=== PATIENT | female | born 1980 | race Caucasian/White ===

== ENCOUNTER 2019-11-09 10:36 | Inpatient (IN) | payer OTHER ==
[~2019-11-09] VITALS: Ht 154.9 cm; Wt 107.1 kg
[2019-11-09] MEDS ORDERED: PANT40TA3 PO (10:59)
[2019-11-09] MEDS ORDERED: BENZ0.5T23 PO (10:59)
[2019-11-09] MEDS ORDERED: MELA3TAB49 PO (10:59)
[2019-11-09] MEDS ORDERED: LORA-674 PO (10:59)
[2019-11-09] MEDS ORDERED: PANTOPRAZOLE 40MG TAB (PROTONIX) PO ONE (11:15)
--- NOTE | 2019-11-09 13:26 | MHHPEPDOC ---
[facility] History & Physical History and Physical DATE OF ADMISSION: LEGAL STATUS AT ADMISSION: . CHIEF COMPLAINT: . HISTORY OF PRESENT ILLNESS: Patient is a 39-year-old female, who PSYCHIATRIC REVIEW OF SYSTEMS: Affective: . Anxiety: . Trauma: . Psychosis: . Personality: . PAST PSYCHIATRIC HISTORY: Prior Psychiatric Disorder: . Outpatient Treatment: . Suicidal/Self injurious: [Denies]. Psychotropic Medication History: . ALLERGIES: Please see below. FAMILY PSYCHIATRIC HISTORY: [Denies]. SOCIAL HISTORY: Early Relations/development: . Sibling order: . Paternal relationships: . Education: . Occupational: . Legal: . Marital: . Economic: . Supports: . Abuse/trauma: . SUBSTANCE ABUSE HISTORY: . PAST MEDICAL/SURGICAL HISTORY: [None]. VITAL SIGNS: Please see below. MENTAL STATUS EXAMINATION: General appearance: Patient is a -year old female, who is . Speech: . Thought processes: . Thought content: . Abstract reasoning and computation: . Description of associations: . Description of abnormal or psychotic thoughts: . Judgment: . Insight: . Orientation: . Recent and remote memory: . Attention span and concentration: . Fund of knowledge: . Mood: "." Affect: . DIAGNOSES: 1. . 2. . 3. . ASSESSMENT: PROBLEM LIST: 1. . 2. . 3. . INITIAL TREATMENT PLAN: 1. Patient was admitted on a . 2. Complete history was obtained. 3. With patients permission, family will be contacted and database will be expanded. 4. Patients medication regimen will be reviewed and changed accordingly. 5. Patient will be provided with protected environment. 6. Patient will be treated with individual, group, and milieu therapies. 7. Patient will receive supportive psych-education. 8. Discharge planning will commence immediately. 9. Outpatient follow-up treatment will be strongly recommended. 10. The initial treatment plan will focus initially on: * Depression. * Risk for suicide. * Substance abuse. ESTIMATED LENGTH OF STAY: - DAYS. TIME SPENT COUNSELING AND COORDINATING INITIAL CARE: minutes. Vital Signs Vital Signs Date Time Temp Pulse Resp B/P (MAP) Pulse Ox O2 Delivery O2 Flow Rate FiO2 11/08/20 10:45 98.2 100 16 121/69 99 Room Air Medications Scheduled Benztropine Mesylate (Benztropine Mesylate) 0.5 Mg Tablet, 1 TAB PO DAILY, (Reported) Loratadine (Loratadine) 10 Mg Tablet, 1 TAB PO DAILY for allergy symptoms, (Reported) Melatonin (Melatonin) 3 Mg Tab.rapdis, 1 TAB PO QPM for sleep, (Reported) Pantoprazole Sodium (Pantoprazole Sodium) 40 Mg Tablet.dr, 1 TAB PO DAILY, (Reported) Allergies Coded Allergies: Penicillins (Verified Allergy, Unknown, rash, 11/09/19) MYNOR LONG DO November 09, 2019 13:26
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
[2019-11-09] MEDS ORDERED: MOM 30ML SUSPENSION UDC PO PRN (14:15)
[2019-11-09] MEDS ORDERED: MELA3TAB62 PO (14:19)
[2019-11-09] MEDS: OLANZapine ORAL DISINTEGRATING TAB 5MG PO PRN (17:32)
[2019-11-09] MEDS: traZODone 50 MG TAB PO PRN (20:29)
[2019-11-09] MEDS: ACETAMINOPHEN TAB 650MG DOSE (2X325MG) PO PRN (21:46)
[2019-11-10] MEDS: OLANZapine ORAL DISINTEGRATING TAB 5MG PO PRN ×5 (00:12→23:46)
[2019-11-10] MEDS: ACETAMINOPHEN TAB 650MG DOSE (2X325MG) PO PRN (12:15)
--- NOTE | 2019-11-10 15:29 | HPEPDOC ---
[facility] Medical History & Physical Date of Admission November 09, 2019 Date of Service: November 10, 2019 History and Physical CHIEF COMPLAINT: Admitted to [facility] for psychosis HISTORY OF PRESENT ILLNESS: 39-year-old female is admitted to inpatient mental health unit for unspecified psychosis. Patient is very withdrawn and guarded during my history and physical, elected not to tell me why she is here/reason for admission. Patient basically said no to all of my questions, denies previous medical history, denies taking medications in the outpatient setting, denies any complaints at this time. She denies any short of breath, chest pain, nausea, vomiting, diarrhea or constipation. 10 point review of system is negative so for above PAST MEDICAL HISTORY: 1. Psychosis. PAST SURGICAL HISTORY: 1. None. SOCIAL HISTORY: Current smoker. Denies alcohol use. Denies drug use FAMILY HISTORY: Mother with unknown malignancy ALLERGIES: Please see below. HOME MEDICATIONS: Please see below. PHYSICAL EXAMINATION: VITAL SIGNS: Please see below. GENERAL: Morbidly obese HEENT: Normocephalic, atraumatic, moist mucous membranes NECK: Supple CARDIOVASCULAR EXAMINATION: S1, S2, no murmurs RESPIRATORY EXAMINATION: Clear to auscultation, no wheezing ABDOMINAL EXAMINATION: Soft, nontender, nondistended, positive bowel sounds EXTREMITIES: Range of motion intact SKIN: No rash NEUROLOGICAL EXAMINATION: Alert and oriented 3, no focal deficits PSYCHIATRIC EXAMINATION: Guarded LABORATORY DATA: See below. MICROBIOLOGY: Please see below. ASSESSMENT: 39-year-old female is admitted to inpatient mental health unit for psychosis. PLAN: 1. Unspecified psychosis. Management as per primary team Patient denies any medical history, no active medical issues noted at this time, please reconsult as needed. Vital Signs Vital Signs Date Time Temp Pulse Resp B/P (MAP) Pulse Ox O2 Delivery O2 Flow Rate FiO2 11/09/19 10:45 98.2 100 16 121/69 99 Room Air Home Medications Scheduled Benztropine Mesylate (Benztropine Mesylate) 0.5 Mg Tablet, 0.5 MG PO DAILY Loratadine (Loratadine) 10 Mg Tablet, 10 MG PO DAILY Melatonin (Melatonin) 3 Mg Tablet, 3 MG PO QHS Pantoprazole Sodium (Pantoprazole Sodium) 40 Mg Tablet.dr, 40 MG PO DAILY Allergies Coded Allergies: Penicillins (Verified Allergy, Unknown, rash, 11/09/19) A-FIB/CHADSVASC A-FIB History Current/History of A-Fib/PAF?: No TIMOTEO CONTE MD November 10, 2019 15:29
[2019-11-10] MEDS: LORazepam 1 MG TAB PO PRN (19:52)
[2019-11-10] MEDS: traZODone 50 MG TAB PO PRN (20:05)
[2019-11-10] MEDS ORDERED: PALIPERIDONE 3 MG ER TAB (INVEGA) PO SCH (21:00)
[2019-11-10] MEDS ORDERED: traZODone 50 MG TAB PO ONE (23:45)
[2019-11-11] MEDS: LORazepam 1 MG TAB PO PRN ×2 (00:05→23:36)
--- NOTE | 2019-11-11 09:06 | MHIPNPDOC ---
[facility] Progress Note Progress Note DATE OF SERVICE: 11/11/19 The patient is attempted be met with today, however she is still quite distorted and has little ability to engage in any discussion today. She simply says "fi ne". She is nearly unintelligible when she speaks. She is notably been bizarre pouring water on the floor, stating "cockroaches". Vital Signs Vital Signs Date Time Temp Pulse Resp B/P (MAP) Pulse Ox O2 Delivery O2 Flow Rate FiO2 11/09/19 10:45 98.2 100 16 121/69 99 Room Air Current Medications Current Medications Medications (Trade) Dose Ordered Sig/Geraldo Route PRN Reason Start Time Stop Time Status Last Admin Dose Admin Acetaminophen (Tylenol Tab) 650 mg Q6HP PRN PO HEADACHE or DISCOMFORT 11/09/19 14:15 11/10/19 12:15 Home Med (Med Rec Complete!) ASDIRECTED XX 11/09/19 14:30 11/09/19 14:20 DC Lorazepam (Ativan) 1 mg Q4HP PRN PO ANXIETY/AGITATION 11/10/19 19:45 11/11/19 00:05 Magnesium Hydroxide (Milk Of Magnesia) 30 ml DAILYPRN PRN PO CONSTIPATION 11/09/19 14:15 Olanzapine (ZyPREXA ZYDIS) 5 mg Q4HP PRN PO AGITATION 11/09/19 14:15 11/10/19 23:46 Paliperidone (Invega) 3 mg QHS PO 11/10/19 21:00 11/10/19 20:05 Trazodone HCl (Desyrel) 50 mg QHSP PRN PO INSOMNIA 11/09/19 14:15 11/10/19 20:05 Allergies Coded Allergies: Penicillins (Verified Allergy, Unknown, rash, 11/09/19) Review of Systems Review of Systems General: Reports: ROS Unobtainable Mental Status Examination General Appearance: disheveled Build: overweight Demeanor: average Eye Contact: intense Activity: slowed Behavior: cooperative Speech: slurred Mood: euphoric Affect: inappropriate Thought Process: incoherent Thought Content (Delusions): grandiose, persecutory, bizarre Cognition(Intelligence Est.): borderline Oriented: Awake Insight: poor Judgment: Poor Psychosis: Psychotic Perceptions Assessment 39-year-old woman with likely schizophrenia on possible intellectual disabilities is seen in follow-up, she still quite distorted and will likely need a higher dose of her medications. Problem List Problems: (1) Schizophrenia Status: Acute Response to Treatment: Uncontrolled Discussed With: Nurse Problem Specific Plan: Monitor Clinically Problem Text: Increase paliperidone to 6 mg nightly. (2) Non compliance w medication regimen Status: Chronic Medications Scheduled Benztropine Mesylate (Benztropine Mesylate) 0.5 Mg Tablet, 0.5 MG PO DAILY, (R eported) Loratadine (Loratadine) 10 Mg Tablet, 10 MG PO DAILY, (Reported) Melatonin (Melatonin) 3 Mg Tablet, 3 MG PO QHS, (Reported) Pantoprazole Sodium (Pantoprazole Sodium) 40 Mg Tablet.dr, 40 MG PO DAILY, (Reported) MYNOR LONG DO November 11, 2019 09:06
[2019-11-11] MEDS: PALIPERIDONE 3 MG ER TAB (INVEGA) PO SCH (20:51)
[2019-11-11] MEDS: traZODone 50 MG TAB PO PRN (23:36)
[2019-11-11] MEDS: OLANZapine ORAL DISINTEGRATING TAB 5MG PO PRN (23:36)
[2019-11-12] MEDS ORDERED: QUEtiapine FUMARATE 25 MG TAB PO ONE (01:45)
[2019-11-12] MEDS ORDERED: diphenhydrAMINE 50MG CAP PO ONE (02:45)
[2019-11-12] MEDS ORDERED: LORazepam 2 MG TAB PO ONE (02:45)
[2019-11-12 06:05] VITALS: BP 126/77
[2019-11-12] MEDS: LITHIUM CARBONATE 150 MG CAP PO SCH ×2 (10:16→22:44)
--- NOTE | 2019-11-12 10:19 | MHIPNPDOC ---
[facility] Progress Note Progress Note DATE OF SERVICE: 11/12/19 The patient is met with today. She is still highly distorted unable to answer very many questions at all. Patient has been up all night and generally engage in bizarre behavior, she continues to pour water on the floor, scream about bugs and is incredibly paranoid. Vital Signs Vital Signs Date Time Temp Pulse Resp B/P (MAP) Pulse Ox O2 Delivery O2 Flow Rate FiO2 11/12/19 06:05 97.6 103 14 126/77 (93) 95 Room Air Current Medications Current Medications Medications (Trade) Dose Ordered Sig/Geraldo Route PRN Reason Start Time Stop Time Status Last Admin Dose Admin Acetaminophen (Tylenol Tab) 650 mg Q6HP PRN PO HEADACHE or DISCOMFORT 11/09/19 14:15 11/10/19 12:15 Home Med (Med Rec Complete!) ASDIRECTED XX 11/09/19 14:30 11/09/19 14:20 DC [place] Carbonate ([place] Carbonate) 150 mg BID PO 11/12/19 09:00 11/12/19 10:16 Lorazepam (Ativan) 1 mg Q4HP PRN PO ANXIETY/AGITATION 11/10/19 19:45 11/11/19 23:36 Magnesium Hydroxide (Milk Of Magnesia) 30 ml DAILYPRN PRN PO CONSTIPATION 11/09/19 14:15 Olanzapine (ZyPREXA ZYDIS) 5 mg Q4HP PRN PO AGITATION 11/09/19 14:15 11/11/19 23:36 Paliperidone (Invega) 3 mg QHS PO 11/10/19 21:00 11/11/19 17:42 DC 11/10/19 20:05 Paliperidone (Invega) 6 mg QHS PO 11/11/19 21:00 11/11/19 20:51 Trazodone HCl (Desyrel) 50 mg QHSP PRN PO INSOMNIA 11/09/19 14:15 11/11/19 23:36 Allergies Coded Allergies: Penicillins (Verified Allergy, Unknown, rash, 11/09/19) Review of Systems Review of Systems General: Reports: ROS Unobtainable Mental Status Examination General Appearance: disheveled Build: overweight Demeanor: mistrustful Behavior: uncooperative Speech: slurred, rapid, pressured Mood: euphoric Mood "bugs!" Affect: inappropriate, labile, disorganized Thought Process: incoherent Thought Content (Delusions): persecutory, bizarre Thought Content (Other): preoccupied, obsessional, appears paranoid Cognition(Intelligence Est.): borderline Oriented: Awake, Alert Insight: poor Judgment: Poor Psychosis: Psychotic Perceptions Assessment 39-year-old woman with likely psychotic disorder, she does not appear you making significant progress will augment her previously tolerated paliperidone with lithium as she is likely some form of schizoaffective disorder. Problem List Problems: (1) Schizophrenia Status: Acute Response to Treatment: Uncontrolled Discussed With: Nurse Problem Specific Plan: Monitor Clinically Problem Text: Continue paliperidone 6 mg nightly augment with lithium 150 mg BID (2) Non compliance w medication regimen Status: Chronic Problem Specific Plan: Monitor Clinically Vital Signs Vital Signs Date Time Temp Pulse Resp B/P (MAP) Pulse Ox O2 Delivery O2 Flow Rate FiO2 11/12/19 06:05 97.6 103 14 126/77 (93) 95 Room Air Medications Scheduled Benztropine Mesylate (Benztropine Mesylate) 0.5 Mg Tablet, 0.5 MG PO DAILY, (Reported) Loratadine (Loratadine) 10 Mg Tablet, 10 MG PO DAILY, (Reported) Melatonin (Melatonin) 3 Mg Tablet, 3 MG PO QHS, (Reported) Pantoprazole Sodium (Pantoprazole Sodium) 40 Mg Tablet.dr, 40 MG PO DAILY, (Reported) MYNOR LONG DO November 12, 2019 10:19
[2019-11-12] MEDS ORDERED: traZODone 50 MG TAB PO ONE (20:45)
[2019-11-12] MEDS: PALIPERIDONE 3 MG ER TAB (INVEGA) PO SCH (22:40)
[2019-11-13 06:36] VITALS: BP 128/73
[2019-11-13] MEDS: LITHIUM CARBONATE 150 MG CAP PO SCH ×3 (08:11→20:22)
--- NOTE | 2019-11-13 09:34 | MHIPNPDOC ---
[facility] Progress Note Progress Note DATE OF SERVICE: 11/13/19 The patient is met with today. She is less distorted, she is still somewhat guarded but she is able to remember some parts of how she arrived to the hospital. She reported no side effects from her medications, she is been less bizarre and able to sleep more effectively at night. She continues to make progress in gaining more insight. Vital Signs Vital Signs Date Time Temp Pulse Resp B/P (MAP) Pulse Ox O2 Delivery O2 Flow Rate FiO2 11/13/19 06:36 98.2 109 18 128/73 (91) 96 Room Air Current Medications Current Medications Medications (Trade) Dose Ordered Sig/Geraldo Route PRN Reason Start Time Stop Time Status Last Admin Dose Admin Acetaminophen (Tylenol Tab) 650 mg Q6HP PRN PO HEADACHE or DISCOMFORT 11/09/19 14:15 11/10/19 12:15 Home Med (Med Rec Complete!) ASDIRECTED XX 11/09/19 14:30 11/09/19 14:20 DC [place] Carbonate (Burna Carbonate) 150 mg BID PO 11/12/19 09:00 11/13/19 08:18 Lorazepam (Ativan) 1 mg Q4HP PRN PO ANXIETY/AGITATION 11/10/19 19:45 11/11/19 23:36 Magnesium Hydroxide (Milk Of Magnesia) 30 ml DAILYPRN PRN PO CONSTIPATION 11/09/19 14:15 Olanzapine (ZyPREXA ZYDIS) 5 mg Q4HP PRN PO AGITATION 11/09/19 14:15 11/11/19 23:36 Paliperidone (Invega) 3 mg QHS PO 11/10/19 21:00 11/11/19 17:42 DC 11/10/19 20:05 Paliperidone (Invega) 6 mg QHS PO 11/11/19 21:00 11/12/19 22:40 Trazodone HCl (Desyrel) 50 mg QHSP PRN PO INSOMNIA 11/09/19 14:15 11/11/19 23:36 Allergies Coded Allergies: Penicillins (Verified Allergy, Unknown, rash, 11/09/19) Review of Systems Review of Systems Constitutional: Denies: Fever Skin: Denies: Rash Pulmonary: Denies: Dyspnea, Cough Cardiovascular: Denies: Chest Pain, Palpitations Gastrointestinal: Denies: Nausea, Vomiting, Diarrhea, Constipation Neurological: Denies: Weakness, Numbness Mental Status Examination General Appearance: disheveled Build: overweight Demeanor: guarded Eye Contact: avoidant Activity: average Behavior: cooperative Speech: clear Mood: anxious Mood "okau" Thought Process: circumstantial Thought Content (Delusions): none reported Thought Content (Other): none reported Cognition(Intelligence Est.): borderline Insight: improving Judgment: Improving Psychosis: Denies Assessment 39-year-old woman with likely psychotic disorder presents and is treated with appropriate treatments, she is making improvements and would likely do well on injectable antipsychotic Problem List Problems: (1) Schizophrenia Status: Acute Response to Treatment: Uncontrolled Discussed With: Nurse Problem Specific Plan: Monitor Clinically Problem Text: Continue paliperidone and lithium at current dose, will give first injection of 234 mg and then second prior to discharge in order to encourage compliance (2) Non compliance w medication regimen Status: Chronic Problem Specific Plan: Monitor Clinically Problem Text: Will use injectables to help reduce chance of remission. Medications Scheduled Benztropine Mesylate (Benztropine Mesylate) 0.5 Mg Tablet, 0.5 MG PO DAILY, (Reported) Loratadine (Loratadine) 10 Mg Tablet, 10 MG PO DAILY, (Reported) Melatonin (Melatonin) 3 Mg Tablet, 3 MG PO QHS, (Reported) Pantoprazole Sodium (Pantoprazole Sodium) 40 Mg Tablet.dr, 40 MG PO DAILY, (Reported) MYNOR LONG DO November 13, 2019 09:34
[2019-11-13] MEDS ORDERED: PALIPERIDONE PALMITATE 234MG/1.5ML INJ (INVEGA)(FREE PSY INPT ONLY) IM ONE (13:00)
[2019-11-13] MEDS: ACETAMINOPHEN TAB 650MG DOSE (2X325MG) PO PRN (13:30)
[2019-11-13 17:12] VITALS: BP 133/87
[2019-11-13] MEDS: PALIPERIDONE 3 MG ER TAB (INVEGA) PO SCH (20:22)
--- NOTE | 2019-11-13 22:02 | ECGEPIP ---
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 Electronically Signed on 11-13-2019 22:02:16 EDT by Arash Warren
[2019-11-14 06:00] VITALS: BP 146/74
[2019-11-14] MEDS: LITHIUM CARBONATE 150 MG CAP PO SCH ×2 (08:04→20:17)
[2019-11-14] MEDS: ACETAMINOPHEN TAB 650MG DOSE (2X325MG) PO PRN (11:05)
[2019-11-14] MEDS: OLANZapine ORAL DISINTEGRATING TAB 5MG PO PRN (16:33)
[2019-11-14 16:39] VITALS: BP 130/80
[2019-11-14] MEDS: PALIPERIDONE 3 MG ER TAB (INVEGA) PO SCH (20:17)
[2019-11-14] MEDS: traZODone 50 MG TAB PO PRN (20:17)
[2019-11-15 06:27] VITALS: BP 144/76
[2019-11-15] MEDS: LITHIUM CARBONATE 150 MG CAP PO SCH ×2 (08:04→20:53)
[2019-11-15 16:41] VITALS: BP 132/96
[2019-11-15] MEDS: PALIPERIDONE 3 MG ER TAB (INVEGA) PO SCH (20:53)
[2019-11-16 06:32] VITALS: BP 137/94
[2019-11-16] MEDS ORDERED: PALIPERIDONE PALMITATE 234MG/1.5ML INJ (INVEGA)(FREE PSY INPT ONLY) IM ONE (08:00)
[2019-11-16] MEDS: LITHIUM CARBONATE 150 MG CAP PO SCH (08:48)
[2019-11-16 09:50] VITALS: BP 137/94
--- NOTE | 2019-11-16 10:04 | MHDSPDOC ---
[facility] Discharge Summary Discharge Summary DATE OF ADMISSION: November 09, 2019 at 14:03 DATE OF DISCHARGE: Nov 16, 2019 at 13:40 DISCHARGE DIAGNOSES: 1) Schizophrenia (2) Non compliance w medication regimen REASON FOR ADMISSION: 39-year-old woman with a history of schizophrenia presents to a outside hospital psychotic and distorted CONSULTANTS INVOLVED: none TREATMENT AND PROGRESS ON THE UNIT : patient was admitted to the inpatient mental health unit where she was so distorted she was incomprehensible, she was started on paliperidone increase to 6 mg nightly and subsequently started on lithium increased to 150 millions BID, her lithium levels were low upon initial draw prior to her discharge. She made good progress on the unit going from being completely distorted pouring water randomly on the floor to conversive with good hygiene. She was then given a dose of paliperidone depot series so that she would not need to take oral medications for her antipsychotic, she has poor compliance. DISCHARGE ASSESSMENT: 39-year-old woman with likely schizophrenia poor compliance present psychotic and is treated with augmented agents with positive effects. The patient at the time of discharge did not meet criteria for involuntary adm ission/extension due to having a normal mental status exam, fair insight into the situation, They are engaged in the discharge process, as well as being friendly and amenable in behavioral control and havent been engaging in any observed concerning behavior or ideation recently. They decline voluntary extension/admission at this time and must be discharged in good elzbieta, as Im able to make a case for holding the patient against their will. They may have historical risk factors of admissions and other interactions with psychiatry however, those are not modifiable from a clinical perspective. The patient will need to be discharged in good elzbieta. MENTAL STATUS EXAMINATION ON DISCHARGE: General: Well dressed with good hygiene Speech: Spontaneous and fluid Thought processes: Linear and logical Thought content: Future orientated Abstract reasoning, and computation: Intact Description of associations: Intact Description of abnormal or psychotic thoughts:Denies any suicidal or homicidal ideation. Denies any auditory or visual hallucinations. Does not appear to be responding to internal stimuli. Does not appear to be endorsing any bizarre or paranoid ideation. Judgment: fair Insight: fair Orientation: Alert and orientated 3 Recent and remote memory: Intact Attention span and concentration: Intact Fund of knowledge: Adequate Mood: "okay" Affect: Euthymic with a full range PLAN/FOLLOWUP ARRANGEMENTS: appropriate follow-up appointments made. The amount of time spent in the coordination of care for this patient was approximately 45 minutes. Vital Signs/I&Os Vital Signs Date Time Temp Pulse Resp B/P (MAP) Pulse Ox O2 Delivery O2 Flow Rate FiO2 11/16/19 09:50 99.3 107 16 137/94 98 Room Air Laboratory Data Labs 24H Laboratory Tests 2 11/16/19 08:31: Scott Level 0.30L Medications Scheduled [place] Carbonate ([place] Carbonate) 150 Mg Capsule, 150 MG PO BID for mood for 7 Days, #14 Loratadine (Loratadine) 10 Mg Tablet, 10 MG PO DAILY, (Reported) Melatonin (Melatonin) 3 Mg Tablet, 3 MG PO QHS, (Reported) Paliperidone Palmitate (Invega Sustenna) 156 Mg/1 Ml Syringe, 1 SYRINGE IM Q30D for thoughts for 30 Days, #1 Pantoprazole Sodium (Pantoprazole Sodium) 40 Mg Tablet.dr, 40 MG PO DAILY, (Reported) Allergies Coded Allergies: Penicillins (Verified Allergy, Unknown, rash, 11/09/19) MYNOR LONG DO Nov 16, 2019 10:04
[2019-11-16] MEDS ORDERED: INVE156I IM (10:33)
[2019-11-16] MEDS ORDERED: LITH150C PO (10:33)
== END 2019-11-16 13:40 | disposition home or self-care (01) | DRG 750 ==
LOC: M ED 10:36 → EDBD 10:36 → M ED INP 14:03 → M PSY 16:10
PROVIDERS: ADMIT Psychiatry & Neurology Addiction Medicine; ATTEND Psychiatry & Neurology Addiction Medicine
DX: F20.9 Schizophrenia, unspecified (principal); Z91.14 Patient's other noncompliance with medication regimen; Z88.0 Allergy status to penicillin; Z79.899 Other long term (current) drug therapy